=== PATIENT | male | born 1955 | race Two or more races ===

== ENCOUNTER 2017-10-23 10:16 | Day surgery (SDC) | payer OTHER ==
[2017-10-23] MEDS ORDERED: MIDAZOLAM 1 MG/ML 2 ML INJ (11:27)
[2017-10-23] MEDS ORDERED: PROPOFOL 60 ML (11:27)
[2017-10-23] MEDS ORDERED: LIDOCAINE 2% (SDV) 5 ML INJ (11:27)
== END 2017-10-23 14:50 | disposition home or self-care (01) ==
LOC: GIL 10:16
DX: R19.5 Other fecal abnormalities (principal); K21.0 Gastro-esophageal reflux disease with esophagitis; K57.90 Diverticulosis of intestine, part unspecified, without perforation or abscess without bleeding; Q27.33 Arteriovenous malformation of digestive system vessel; K29.60 Other gastritis without bleeding; K44.9 Diaphragmatic hernia without obstruction or gangrene; I10 Essential (primary) hypertension; E78.00 Pure hypercholesterolemia, unspecified
CPT/HCPCS: 43239; 88305; 88312; 88313